=== PATIENT | male | born 1975 | race Caucasian/White ===

== ENCOUNTER 2018-04-18 07:17 | Emergency (ER) | payer OTHER ==
[~2018-04-18] VITALS: Ht 170.2 cm; Wt 78.0 kg
[2018-04-18 07:20] VITALS: BP 138/88
[2018-04-18] MEDS: LORazepam 2 MG/ML VIAL IM ONE (08:19)
[2018-04-18] MEDS: LORazepam 1 MG TAB PO ONE (09:26)
[2018-04-18 11:25] VITALS: BP 116/68
== END 2018-04-18 11:25 | disposition home or self-care (01) ==
LOC: MED 07:17
DX: F15.90 Other stimulant use, unspecified, uncomplicated (principal); F20.9 Schizophrenia, unspecified; I10 Essential (primary) hypertension; Z90.49 Acquired absence of other specified parts of digestive tract
CPT/HCPCS: 96372; 99284; J2060